=== PATIENT | female | born 1975 | race Caucasian/White ===

== ENCOUNTER 2016-08-30 | Outpatient (CLI) | payer OTHER | END 2016-08-30 19:27 | disposition critical access hospital (66) | CPT/HCPCS: A0425; A0427 ==

== ENCOUNTER 2016-08-30 19:45 | Emergency (ER) | payer OTHER ==
[2016-08-30] MEDS ORDERED: LORazepam 0.5 MG TABLET PO STA (23:52)
[2016-08-30] MEDS ORDERED: NICOTINE 14 MG PATCH TOP STA (23:52)
[2016-08-30] MEDS ORDERED: NICOTINE 14 MG PATCH TOP ONE (23:54)
[2016-08-30] MEDS ORDERED: LORazepam 0.5 MG TABLET ONE (23:54)
[2016-08-31] MEDS ORDERED: FLUoxetine 10 MG CAPSULE PO ONE (09:00)
[2016-08-31] MEDS ORDERED: FLUoxetine 10 MG CAPSULE PO SCH (09:00)
[2016-08-31] MEDS ORDERED: LORazepam 0.5 MG TABLET PO STA (09:18)
[2016-08-31] MEDS ORDERED: LORazepam 0.5 MG TABLET ONE (09:24)
== END 2016-08-31 10:35 ==
DX: T42.6X1A Poisoning by other antiepileptic and sedative-hypnotic drugs, accidental (unintentional), initial encounter (principal); Y92.009 Unspecified place in unspecified non-institutional (private) residence as the place of occurrence of the external cause; R45.850 Homicidal ideations; R10.2 Pelvic and perineal pain; F17.200 Nicotine dependence, unspecified, uncomplicated
CPT/HCPCS: 36415; 80053; 80306; 80307; 80320; 80329; 81001; 81025; 83690; 84443; 85025; 93005; 93010; 99284; A9270

== ENCOUNTER 2016-08-31 | Outpatient (CLI) | payer OTHER | END 2016-08-31 10:35 | CPT/HCPCS: A0425; A0428 ==

== ENCOUNTER 2016-11-24 02:09 | Emergency (ER) | payer OTHER ==
[2016-11-24] MEDS ORDERED: SODIUM CHLORIDE 0.9% 1,000 ML IV ONE ×2 (03:04→03:27)
[2016-11-24 03:24] LABS: BASOPHILS # (AUTO) 0.1 10^3/uL (0.0-0.1); BASOPHILS % (AUTO) 1.5 %; EOSINOPHILS # (AUTO) 0.3 10^3/uL (0.0-0.7); EOSINOPHILS % (AUTO) 4.3 %; HCT - HEMATOCRIT 40.1 % (37.0-47.0); LYMPHOCYTES # (AUTO) 1.3 10^3/uL (1.5-3.5); LYMPHOCYTES % (AUTO) 21.8 %; MEAN CORPUSCULAR HEMOGLOBIN 32.3 pg (27.0-31.0); MEAN CORPUSCULAR VOLUME 92.1 fL (81.0-99.0); MEAN PLATELET VOLUME 7.7 fL (7.9-10.8); MONOCYTES # (AUTO) 0.6 10^3/uL (0.0-1.0); MONOCYTES % (AUTO) 9.9 %; NEUTROPHILS # (AUTO) 3.6 10^3/uL (1.5-6.6); NEUTROPHILS % (AUTO) 62.5 %; RED BLOOD COUNT 4.35 10^6/uL (4.20-5.40); RED CELL DISTRIBUTION WIDTH 14.7 % (12.0-15.0); UNCORRECTED WHITE BLOOD COUNT 5.8 x10^3/uL; WHITE BLOOD COUNT 5.8 x10^3/uL (4.8-10.8)
[2016-11-24] MEDS ORDERED: LORazepam 0.5 MG TABLET PO STA (03:27)
[2016-11-24] MEDS ORDERED: LORazepam 0.5 MG TABLET ONE (03:33)
[2016-11-24 03:39] LABS: ALBUMIN/GLOBULIN RATIO 1.3 (1.0-2.2); BILIRUBIN,TOTAL 0.2 mg/dL (0.2-1.0); CALCIUM 8.8 mg/dL (8.5-10.3); CREATININE 0.8 mg/dL (0.4-1.0); POTASSIUM 3.9 mmol/L (3.5-5.0); TOTAL PROTEIN 7.2 g/dL (6.7-8.2)
[2016-11-24] MEDS ORDERED: KETOROLAC 60 MG/2 ML VIAL IVP STA (04:13)
[2016-11-24] MEDS ORDERED: KETOROLAC 30 MG/ML VIAL ONE (04:15)
--- NOTE | 2016-11-24 04:40 | XRAY Preliminary Report ---
Exam: XR Chest 2 View PA/LAT IMPRESSION: No acute cardiopulmonary abnormality demonstrated. [facility] SITE ID: [id number]
[2016-11-24 04:42] VITALS: BP 134/66
--- NOTE | 2016-11-24 04:43 | XRAY Report ---
EXAM: CHEST RADIOGRAPHY EXAM DATE: 11/24/2016 04:00 AM. CLINICAL HISTORY: Productive cough for 3 days. COMPARISON: None. TECHNIQUE: 2 views. FINDINGS: Lungs/Pleura: a small aspect of the posterior costophrenic sulcus region is not imaged on this exam. As visualized, no significant consolidation, effusion, or pneumothorax demonstrated. Mediastinum: Heart and mediastinal contours are unremarkable. Other: None. IMPRESSION: No acute cardiopulmonary abnormality demonstrated. [facility] Referring Provider Line: [phone] SITE ID: [id number]
--- NOTE | 2016-11-24 05:18 | ED Physician Documentation ---
PD HPI URI - Stated complaint Stated Complaint: DIFF BREATHING,SOA - Chief complaint Chief Complaint: Resp - History obtained from History obtained from: Patient, Family - History of Present Illness Timing - onset: How many days ago (2) Timing details: Gradual onset, Still present Associated symptoms: Chills, Nasal congestion, Rhinorrhea, Sinus pain, Sore throat, Productive cough Contributing factors: Sick contact Improves by: Rest Similar symptoms before: Has not had sx before Recently seen: Not recently seen - Additional information Additional information: Patient is a 41 year old female with a history of anxiety and depression who is presenting to the emergency department for cough, congestion and sinus pressure. Patient states that her mother on sunday from pneumonia. Patient states that she has had a cough and sinus pain and pressure. Patient also states that her restless legs are acting up and that she needs something to calm them down and that she needs something for the body aches. Review of Systems Constitutional: reports: Fever, Chills, Myalgias Eyes: denies: Loss of vision, Decreased vision Ears: denies: Ear pain, Drainage/discharge Nose: reports: Rhinorrhea / runny nose, Congestion, Sinus pressure / pain. denies: Epistaxis Throat: reports: Sore throat. denies: Dental pain / toothache, Oral lesions / sores Cardiac: denies: Chest pain / pressure, Palpitations Respiratory: reports: Cough. denies: Dyspnea, Wheezing GI: denies: Abdominal Pain, Nausea, Vomiting Skin: denies: Rash, Lesions Musculoskeletal: reports: Back pain, Extremity pain, Joint pain. denies: Neck pain Neurologic: reports: Generalized weakness. denies: Focal weakness, Numbness, Difficulty speaking, Syncope, Headache, Head injury, LOC Psychiatric: reports: Depressed, Anxiety. 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 - Present Medications Home Medications: Ambulatory Orders Medication Instructions Recorded Confirmed FLUoxetine [PROzac] 20 mg ORAL DAILY 05/21/16 08/30/16 Quetiapine Fumarate [Seroquel Xr] 150 mg PO DAILY 06/05/16 08/30/16 - Allergies Allergies/Adverse Reactions: Allergies Allergy/AdvReac Type Severity Reaction Status Date / Time Penicillins Allergy Intermediate Hives Verified 05/21/16 16:24 diphenhydramine HCl * AdvReac Intermediate twitching Verified 05/21/16 16:24 [From Benadryl] - Social History Does the pt smoke?: Yes Smoking Status: Current every day smoker Does the pt drink ETOH?: No Does the pt have substance abuse?: No - Immunizations Immunizations are current?: Yes - POLST Patient has POLST: No PD ED PE NORMAL - Vitals Vital signs reviewed: Yes - General General: Alert and oriented X 3 - HEENT HEENT: Atraumatic, PERRL, Pharynx benign - Neck Neck: Supple, no meningeal sign, No JVD - Abdomen Abdomen: Soft, Non tender, Non distended - Derm Derm: Normal color, Warm and dry, No rash - Extremities Extremities: No deformity, No tenderness to palpate, Normal ROM s pain, No edema - Neuro Neuro: Alert and oriented X 3, 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, No motor deficit, No sensory deficit, Normal speech - Psych Psych: Normal mood, Normal affect PD ED PE EXPANDED - General General: Alert, Disheveled, poorly kept - HEENT HEENT: Ears normal, Dry mucous membranes - Cardiac Cardiac: Tachy - Respiratory Respiratory: No: Retractions, Wheezing, Rhonchi, Rales Results - Vitals Vitals: Vital Signs - 24 hr 11/24/16 11/24/16 11/24/16 02:19 03:26 03:48 Temperature 36.9 C Heart Rate 144 H 107 H 91 Respiratory 20 22 26 H Rate Blood Pressure 147/96 H 140/89 H 135/102 H O2 Saturation 99 97 98 11/24/16 11/24/16 04:10 04:28 Temperature Heart Rate 130 H 95 Respiratory 19 16 Rate Blood Pressure 153/107 H 134/66 H O2 Saturation 98 100 Oxygen O2 Source Room air - Labs Labs: Laboratory Tests 11/24/16 11/24/16 11/24/16 03:00 03:00 03:10 WBC 5.8 RBC 4.35 Hgb 14.0 Hct 40.1 MCV 92.1 MCH 32.3 H MCHC 35.0 RDW 14.7 Plt Count 204 MPV 7.7 L Neut # 3.6 Lymph # 1.3 L [place] # 0.6 Eos # 0.3 Baso # 0.1 Absolute Nucleated RBC 0.00 Nucleated RBCs 0.0 Sodium Potassium Chloride Carbon Dioxide Anion Gap BUN Creatinine Estimated GFR (MDRD) Glucose Lactic Acid Calcium Total Bilirubin AST ALT Alkaline Phosphatase Total Protein Albumin Globulin Albumin/Globulin Ratio Lipase TSH 2.26 HCG, Quant < 0.60 11/24/16 11/24/16 03:10 03:10 WBC RBC Hgb Hct MCV MCH MCHC RDW Plt Count MPV Neut # Lymph # [place] # Eos # Baso # Absolute Nucleated RBC Nucleated RBCs Sodium 137 Potassium 3.9 Chloride 108 Carbon Dioxide 22 Anion Gap 7.0 BUN 6 Creatinine 0.8 Estimated GFR (MDRD) 80 L Glucose 108 H Lactic Acid 1.4 Calcium 8.8 Total Bilirubin 0.2 AST 16 ALT 17 Alkaline Phosphatase 85 Total Protein 7.2 Albumin 4.0 Globulin 3.2 Albumin/Globulin Ratio 1.3 Lipase 25 TSH HCG, Quant - Rads (name of study) chest x-ray Radiology: Final report received (no acute disease process) PD MEDICAL DECISION MAKING - ED course Complexity details: reviewed old records, reviewed results, re-evaluated patient , considered differential, d/w patient ED course: Patient was seen and examined at bedside. IV access was gained and labs were drawn. ekg was perfromed and showed sinus tachycardia. patient was treated with a liter of fluid. chest x-ray was ordered. Patient stated she needed something to help with the anxiety surrounding her mother's and was treated with ativan 0.5mg. Patient was sent for imaging. when patient returned she stated she was in pain again and was treated with toradol. Patient was made aware that narcotic medications were not indicated. Patient states that she wanted to leave and she wanted to go home. Patient signed out ama. Patient's chest x-ray turned out to be negative and the tachycardia had improved. Departure - Departure Disposition: 07 Against Medical Advice Discharge Date/Time: 11/24/16 04:40
== END 2016-11-24 04:40 | disposition left against medical advice (07) ==
LOC: ED 02:09
DX: R00.0 Tachycardia, unspecified (principal); F41.9 Anxiety disorder, unspecified; R52 Pain, unspecified; Z53.21 Procedure and treatment not carried out due to patient leaving prior to being seen by health care provider; F17.200 Nicotine dependence, unspecified, uncomplicated
CPT/HCPCS: 36415; 71020; 80053; 83605; 83690; 84443; 84702; 85025; 93005; 93010; 96361; 96374; 99284; A9270

== ENCOUNTER 2017-02-19 17:25 | Emergency (ER) | payer OTHER ==
[2017-02-19 17:33] VITALS: BP 156/114
== END 2017-02-19 17:59 | disposition left against medical advice (07) ==
LOC: ED 17:25
DX: Z53.21 Procedure and treatment not carried out due to patient leaving prior to being seen by health care provider (principal); R10.11 Right upper quadrant pain

== ENCOUNTER 2017-02-21 09:33 | Emergency (ER) | payer OTHER ==
[2017-02-21] MEDS ORDERED: SODIUM CHLORIDE 0.9% 1,000 ML IV ONE (09:51)
[2017-02-21] MEDS ORDERED: ONDANSETRON 4 MG/2 ML VIAL IVP STA ×2 (09:51→12:37)
[2017-02-21] MEDS ORDERED: KETOROLAC 60 MG/2 ML VIAL IVP STA (09:51)
--- NOTE | 2017-02-21 09:54 | ED Physician Documentation ---
PD HPI ABD PAIN - Stated complaint Stated Complaint: SIDE PX - Chief complaint Chief Complaint: Abd Pain - History obtained from History obtained from: Patient, Family - History of Present Illness Timing - onset: How many days ago (3) Timing - duration: Days (3) Timing - details: Gradual onset, Still present Quality: Aching, Sharp, Pain Location: RUQ Radiation: Right flank Improved by: Laying still Worsened by: Eating, Moving, Breathing, Position, Palpation Associated symptoms: Nausea, Loss of appetite. No: Diarrhea, Constipation Similar symptoms before: Diagnosis (bile duct enlargement) Recently seen: Other (Seen at [facility] 3 months ago with similar symptoms was diagnosed with a bile duct abnormality.) - Additional information Additional information: 41-year-old female is developed right upper quadrant abdominal pain 3 days ago and this is persisted. She developed belching and nausea and has not been able to eat. The pain radiates to her back and is severe and she has had to call off work today. She has had similar pains monthly and not this bad. She did have an episode this bad about 3 months ago that lasted about 4 days. She was seen then at [facility] and had CT and U/s showing an ovarian cyst and neg gb and no stones. Review of Systems Constitutional: denies: Fever Eyes: denies: Decreased vision Ears: denies: Ear pain Nose: denies: Congestion Throat: denies: Sore throat Respiratory: denies: Cough GI: reports: Abdominal Pain, Nausea. 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 - Present Medications Home Medications: Ambulatory Orders Medication Instructions Recorded Confirmed FLUoxetine [PROzac] 20 mg ORAL DAILY 05/21/16 02/19/17 Quetiapine Fumarate [Seroquel Xr] 150 mg PO DAILY 06/05/16 02/19/17 Ondansetron Odt [Zofran] 4 mg TL Q6H PRN #10 tablet 02/21/17 oxyCODONE/ACET 5/325 [Percocet 5 1 - 2 each PO Q4-6H PRN #20 tablet 02/21/17 mg/325 mg] - Allergies Allergies/Adverse Reactions: Allergies Allergy/AdvReac Type Severity Reaction Status Date / Time Penicillins Allergy Intermediate Hives Verified 05/21/16 16:24 diphenhydramine HCl * AdvReac Intermediate twitching Verified 05/21/16 16:24 [From Benadryl] - Social History Does the pt smoke?: Yes Smoking Status: Current every day smoker Does the pt drink ETOH?: No Does the pt have substance abuse?: No - Immunizations Immunizations are current?: Yes - POLST Patient has POLST: No PD ED PE NORMAL - Vitals Vital signs reviewed: Yes (tachy and hypertensive) - General General: Alert and oriented X 3, Well developed/nourished, Other (The patient appears to be in acute pain with disbursing officer tone and flat affect with persed lip breathing. ) - HEENT HEENT: Atraumatic, PERRL - Neck Neck: Supple, no meningeal sign, No bony TTP - Cardiac Cardiac: No murmur, Other (tachy) - Respiratory Respiratory: No respiratory distress, Clear bilaterally - Abdomen Abdomen: Soft, Other (RUQ tenderness with + auguste's ) - Back Back: No CVA TTP, No spinal TTP - Derm Derm: Normal color, Warm and dry, No rash - Extremities Extremities: No deformity, No edema - Neuro Neuro: No motor deficit, No sensory deficit - Psych Psych: Other (mood is painful and the affect is flat) Results - Vitals Vitals: Vital Signs - 24 hr 02/21/17 02/21/17 02/21/17 09:35 12:41 14:39 Temperature 37 C Heart Rate 112 H 109 H 110 H Respiratory 22 22 18 Rate Blood Pressure 170/98 H 154/111 H 160/53 H O2 Saturation 99 98 98 Oxygen O2 Source Room air - Labs Labs: Laboratory Tests 02/21/17 02/21/17 02/21/17 10:14 10:34 10:34 WBC 7.1 RBC 4.33 Hgb 14.2 Hct 40.9 MCV 94.5 MCH 32.7 H MCHC 34.6 RDW 13.8 Plt Count 343 MPV 7.2 L Neut # 5.0 Lymph # 1.1 L [place] # 0.6 Eos # 0.3 Baso # 0.1 Absolute Nucleated RBC 0.00 Nucleated RBCs 0.0 Sodium 137 Potassium 3.1 L Chloride 103 Carbon Dioxide 25 Anion Gap 9.0 BUN 6 Creatinine 0.9 Estimated GFR (MDRD) 70 L Glucose 100 Calcium 9.0 Total Bilirubin 0.8 AST 16 ALT 18 Alkaline Phosphatase 80 Total Protein 7.6 Albumin 4.5 Globulin 3.1 Albumin/Globulin Ratio 1.5 Lipase 21 L Urine Color YELLOW Urine Clarity CLEAR Urine pH 5.5 Ur Specific [place] 1.020 Urine Protein NEGATIVE Urine Glucose (UA) NEGATIVE Urine Ketones NEGATIVE Urine Occult Blood MODERATE H Urine Nitrite NEGATIVE Urine Bilirubin NEGATIVE Urine Urobilinogen 0.2 (NORMAL) Ur Leukocyte Esterase NEGATIVE Urine RBC 0-5 Urine WBC 0-3 Ur Squamous Epith Cells MOD Squamous H Urine Bacteria Few Urine Mucus Moderate Strands Ur Microscopic Review INDICATED Urine Culture Comments NOT INDICATED Urine HCG, Qual NEGATIVE - Rads (name of study) gb ultrasound Radiology: Prelim report reviewed (Impression: 1. Normal gallbladder.2. Fatty liver.), EMP read indepedently, See rad report Procedures - IVC sono (time) 0950 Bedside IVC sono: IVC measures (cm) (0.92), IVC collapsed c insp (cm) (complete) , Dehydration PD MEDICAL DECISION MAKING - ED course Complexity details: reviewed old records, reviewed results, re-evaluated patient , considered differential, d/w patient, d/w family ED course: 41 y/o female with 3 days of right upper quadrant pain has a sonographically tender gallbladder raising concern for cholecyctisis and a formal ultrasound is obtained and is without evidence of cholecystitis or stones. She is found to be dehydrated and an IV is begun and she is given IV saline, zofran and toradal. She requires further pain medication to get comfortable and still appears very uncomfortable. Further history from the patient indicates this symptom complex has been present for years, is present in the whitley-menstral period and episodes usually last 4-5 days. The symptoms happen monthly and have increased in intensity. She does not usually have this bad of pain but she has had pain like this and we have work ups here () showing neg CT and U/S and she had negative W/U at [facility] in November this year. I considered endometriosis as a possible explanation and she does have a family history of endometriosis. She has never been diagnosed. We contacted her PMD DR. Rigoberto Coy and he will put in a referral to [employer] [facility] today. Dr. Ayers was consulted in the case and will follow up with her in clinic. She was administered 10mg of dexamethasone IV and she did appear to have some relief with this. Departure - Departure Disposition: 01 Home, Self Care Clinical Impression: Flank pain, acute, Endometriosis Condition: Stable Instructions: ED Endometriosis, ED Flank Pain Uncertain Cause Follow-Up: Rigoberto Baumann MD [Primary Care Provider] - Stefan Ayers MD [Provider Admit Priv/Credential] - Prescriptions: oxyCODONE/ACET 5/325 [Percocet 5 mg/325 mg] 1 - 2 each PO Q4-6H PRN #20 tablet PRN Reason: Pain Ondansetron Odt [Zofran] 4 mg TL Q6H PRN #10 tablet PRN Reason: Nausea / Vomiting Forms: Activity restrictions Discharge Date/Time: 02/21/17 15:25
[2017-02-21] MEDS ORDERED: ONDANSETRON 4 MG/2 ML VIAL ONE ×2 (10:04→12:41)
[2017-02-21] MEDS ORDERED: KETOROLAC 30 MG/ML VIAL ONE (10:04)
[2017-02-21] MEDS ORDERED: SODIUM CHLORIDE FLUSH 0.9% 10 ML SYRINGE IVP ONE (10:05)
[2017-02-21 10:27] LABS: BILIRUBIN,URINE NEGATIVE (NEGATIVE); PH,URINE 5.5 PH (5.0-7.5)
[2017-02-21 10:30] LABS: HCG UR QUAL NEGATIVE; UA w/ MICROSCOPIC CHARGE YES
[2017-02-21] MEDS ORDERED: HYDROmorphone 1 MG/ML SYRINGE IVP STA ×3 (10:31→14:50)
[2017-02-21 10:36] LABS: WBC,URINE 0-3 /HPF (0-5)
[2017-02-21 10:37] LABS: UR CULTURE IF IND NOT INDICATED
[2017-02-21] MEDS ORDERED: HYDROmorphone 1 MG/ML SYRINGE ONE ×3 (10:39→14:57)
[2017-02-21 10:43] LABS: BASOPHILS # (AUTO) 0.1 10^3/uL (0.0-0.1); BASOPHILS % (AUTO) 0.7 %; EOSINOPHILS # (AUTO) 0.3 10^3/uL (0.0-0.7); EOSINOPHILS % (AUTO) 4.1 %; HCT - HEMATOCRIT 40.9 % (37.0-47.0); HGB - HEMOGLOBIN 14.2 g/dL (12.0-16.0); LYMPHOCYTES # (AUTO) 1.1 10^3/uL (1.5-3.5); LYMPHOCYTES % (AUTO) 15.9 %; MEAN CORPUSCULAR HEMOGLOBIN 32.7 pg (27.0-31.0); MEAN CORPUSCULAR HGB CONC 34.6 g/dL (32.0-36.0); MEAN CORPUSCULAR VOLUME 94.5 fL (81.0-99.0); MEAN PLATELET VOLUME 7.2 fL (7.9-10.8); MONOCYTES # (AUTO) 0.6 10^3/uL (0.0-1.0); MONOCYTES % (AUTO) 8.7 %; NEUTROPHILS % (AUTO) 70.6 %; RED BLOOD COUNT 4.33 10^6/uL (4.20-5.40); RED CELL DISTRIBUTION WIDTH 13.8 % (12.0-15.0); UNCORRECTED WHITE BLOOD COUNT 7.1 x10^3/uL; WHITE BLOOD COUNT 7.1 x10^3/uL (4.8-10.8)
[2017-02-21 11:00] LABS: ALBUMIN/GLOBULIN RATIO 1.5 (1.0-2.2); BILIRUBIN,TOTAL 0.8 mg/dL (0.2-1.0); CREATININE 0.9 mg/dL (0.4-1.0); POTASSIUM 3.1 mmol/L (3.5-5.0); TOTAL PROTEIN 7.6 g/dL (6.7-8.2)
[2017-02-21] MEDS ORDERED: POTASSIUM BICARB 25 MEQ TABLET PO STA (11:18)
[2017-02-21] MEDS ORDERED: POTASSIUM BICARB 25 MEQ TABLET PO ONE (11:28)
--- NOTE | 2017-02-21 11:28 | Ultrasound Report ---
LIMITED RIGHT UPPER QUADRANT ULTRASOUND: 02/21/2017 CLINICAL HISTORY: Right upper quadrant pain. TECHNIQUE: Real-time scanning was performed with player services representative static images obtained. FINDINGS: The liver is normal in size measuring approximately 15 cm in length. The echotexture is increased consistent with fatty infiltration. No discrete liver lesions present. The gallbladder is partially contracted but sonographically normal. No stones present. There is no wall thickening, pericholecystic fluid, or ductal dilation. The right kidney is normal measuring 12 cm in length. IMPRESSION: 1. NORMAL GALLBLADDER. 2. FATTY LIVER. MTDD
[2017-02-21] MEDS ORDERED: DEXAMETHASONE 10 MG/ML VIAL IVP STA (13:57)
[2017-02-21] MEDS ORDERED: DEXAMETHASONE 10 MG/ML VIAL ONE (14:02)
[2017-02-21 14:41] VITALS: BP 160/53
== END 2017-02-21 15:25 | disposition home or self-care (01) ==
LOC: ED 09:33
DX: N80.9 Endometriosis, unspecified (principal); R10.31 Right lower quadrant pain; F17.200 Nicotine dependence, unspecified, uncomplicated
CPT/HCPCS: 36415; 76705; 80053; 81001; 81025; 83690; 85025; 96374; 96375; 96376; 99283; 99284; A9270; J1170; 81003; 87086

== ENCOUNTER 2017-03-09 10:57 | Outpatient (CLI) | payer OTHER ==
--- NOTE | 2017-03-09 15:09 | Nuclear Medicine Report ---
EXAM: HEPATOBILIARY SCAN WITH CCK/KINEVAC ADMINISTRATION EXAM DATE: 03/09/2017 11:47 AM. CLINICAL HISTORY: CHRONIC RUQ PAIN, NORMAL IMAGING. COMPARISON: CT 07/10/2014. TECHNIQUE: Following the intravenous administration of 4.5 mCi of Tc99m Mebrofenin, a hepatobiliary s can was done centered on the liver and gallbladder in multiple sequential images and projections. Following the intravenous administration of 1.4 mcg of CCK/ Kinevac over the course of approximately 25 minutes, dynamic imaging was done and the gallbladder ejection fraction was calculated. FINDINGS: Normal extraction of tracer from the blood pool indicating normal hepatocellular function. The liver size and shape is grossly within normal limits. There is activity visualized in the bile ducts, gallbladder, and small bowel within the first hour. With CCK administration, the gallbladder demonstrates an effective contraction. The gallbladder eject ion fraction is calculated to be 97%, well above the lower limit of normal of 38% for a 60-minute inj ection. No evidence of enteric reflux into the stomach. No significant collection of tracer remaining in the common bile duct by the end of the study. IMPRESSION: 1. Patent cystic duct. 2. Patent common bile duct. 3. Negative for acute or chronic cholecystitis. 4. No enterogastric bile reflux. 5. Normal gallbladder ejection fraction of 97%. [facility] Referring Provider Line: [phone] SITE ID: [id number]
== END 2017-03-09 10:58 | disposition home or self-care (01) ==
LOC: DI 10:57
DX: R10.11 Right upper quadrant pain (principal); G89.29 Other chronic pain
CPT/HCPCS: 78227; A9537; J7040